=== PATIENT | male | born 1985 | race American Indian/Alaskan Native ===

== ENCOUNTER 2019-07-07 15:53 | Inpatient (IN) | payer SELFPAY ==
[2019-07-07 17:01] LABS: Mean Corpuscular HGB Conc 31 % (32-34); Mean Corpuscular Volume 90 fl (84-94); Platelet Count 295 K/mm3 (140-440); Red Blood Count 6.62 M/mm3 (3.65-5.03); Red Cell Distribution Width 15.4 % (13.2-15.2)
[2019-07-07 17:03] LABS: Hematocrit 59.3 % (35.5-45.6); Hemoglobin 18.2 gm/dl (11.8-15.2)
[2019-07-07 17:06] LABS: Albumin 5.4 g/dL (3.9-5); Calcium 10.4 mg/dL (8.4-10.2)
[2019-07-07] MEDS ORDERED: INSULIN REGULAR, HUMAN 100 UNITS/1 ML IV ONE (17:06)
[2019-07-07] MEDS ORDERED: SODIUM CHLORIDE 0.9% 1000 ML 1,000 ML IV ONE ×2 (17:06)
[2019-07-07] MEDS ORDERED: DEXTROSE 50% IN WATER (25GM) 50 ML SYRINGE IV PRN (17:09)
--- NOTE | 2019-07-07 17:16 | Emergency Department Report ---
- General Chief complaint: Hyperglycemia Stated complaint: MADDI/FATIGUE/FREQUENT URINATION PUI?: No Time Seen by Provider: 07/07/19 17:05 Source: patient Mode of arrival: Wheelchair Limitations: No Limitations - History of Present Illness Initial comments: 34 y.o simran presents to ER with increased thirst, increased urination, fatigue, generalized weakness, for the past week, worse today. Patient with no significant medical problems, but noticed some weight gain due to poor diet since quarantine began. no fever, chills or night sweats. Strong family h/o diabetes, htn, hld. He is morbidly obese. Has not taken any meds for symptoms. symptoms are worse at nights and he has to wake up several times to urinate. No chest pain or sob, no recent travel or sick contacts. MD Complaint: generalized weakness -: Gradual Location: generalized Severity: moderate Severity scale (0 -10): 4 Quality: dull Consistency: constant Improves with: none Worsens with: none Context: other (increased thirst) Associated Symptoms: dysuria, nausea/vomiting - Related Data Allergies Allergy/AdvReac Type Severity Reaction Status Date / Time Penicillins Allergy Unknown Verified 07/07/19 16:06 ED Review of Systems ROS: Stated complaint: MADDI/FATIGUE/FREQUENT URINATION Other details as noted in HPI Comment: All other systems reviewed and negative Gastrointestinal: nausea. denies: abdominal pain Genitourinary: urgency, dysuria, frequency Musculoskeletal: denies: back pain Skin: denies: rash Neurological: weakness ED Past Medical Hx - Past Medical History Previous Medical History?: No - Surgical History Past Surgical History?: No - Social History Smoking Status: Never Smoker Substance Use Type: None ED Physical Exam - General Limitations: No Limitations General appearance: lethargic - Head Head exam: Present: atraumatic - Eye Eye exam: Present: normal appearance, PERRL, EOMI - ENT ENT exam: Present: normal exam - Neck Neck exam: Present: normal inspection - Respiratory Respiratory exam: Present: normal lung sounds bilaterally - Cardiovascular Cardiovascular Exam: Present: regular rate, normal rhythm - GI/Abdominal GI/Abdominal exam: Present: soft, normal bowel sounds - Extremities Exam Extremities exam: Present: normal inspection - Back Exam Back exam: Present: normal inspection - Neurological Exam Neurological exam: Present: alert, oriented X3 - Psychiatric Psychiatric exam: Present: normal affect, normal mood - Skin Skin exam: Present: warm, dry, intact, normal color. Absent: rash - Assessment Assessment Interval: Baseline - Level of Consciousness 1a. Level of Consciousness: alert/keenly responsive - LOC Questions 1b. LOC Questions: answers both correctly - LOC Command 1c. LOC Commands: performs tasks correctly - Best Gaze 2. Best Gaze: normal - Visual 3. Visual: no visual loss - Facial Palsy 4. Facial Palsy: normal symmetrical movement - Motor Arm 5a. Motor Arm Left: no drift 5b. Motor Arm Right: no drift - Motor Leg 6a. Motor Leg Left: no drift 6b. Motor Leg Right: no drift - Limb Ataxia 7. Limb Ataxia: absent - Sensory 8. Sensory: normal - Best Language 9. Best Language: no aphasia - Dysarthria 10. Dysarthria: normal - Extinction and Inattention 11. Extinction/Inattention: no abnormality - Scoring Total Score: 0 Stroke Severity: No Stroke Symptoms ED Course Vital Signs 07/07/19 07/07/19 07/07/19 16:03 16:06 17:30 Temperature 97.5 F L 97.5 F L Pulse Rate 128 H 128 H 119 H Respiratory 20 22 27 H Rate Blood Pressure 171/106 171/106 162/102 O2 Sat by Pulse 98 98 96 Oximetry 07/07/19 07/07/19 07/07/19 17:36 18:00 18:46 Temperature Pulse Rate 121 H 103 H 103 H Respiratory 27 H 23 Rate Blood Pressure 162/102 162/102 162/102 O2 Sat by Pulse 98 100 Oximetry 07/07/19 18:48 Temperature Pulse Rate Respiratory 24 Rate Blood Pressure O2 Sat by Pulse 100 Oximetry - Reevaluation(s) Reevaluation #1: 07/07/19 17:17 patient started on insulin d/t fsbs greater than 500 and ph 7.0 ED Medical Decision Making - Lab Data Result diagrams: 07/07/19 16:30 07/07/19 17:24 - Radiology Data Radiology results: report reviewed interpreted by me: yes - Medical Decision Making 34 y.o with new onset diabetes glucose 990 bicarb 6 in dka started on insulin drip, ns x 2 l. oxygen admit to hospitalist service new onset htn with urgency- metoprolol 5mg iv given tachycardia- secondary to dka, ivf, metoprolol, ekg lactic acidosis- secondary to dka, ivf, insulin drip dehydration: ivf, ns 2 liter bolus padmini- secondary to dehydration,dm, ivf ns 2 liters, bolus then maintenance fluids. - Differential Diagnosis dka,ami,drug abuse,dehydration,rhabdomyolisis, Critical Care Time: Yes Critical care time in (mins) excluding proc time.: 30 Critical care attestation.: If time is entered above; I have spent that time in minutes in the direct care of this critically ill patient, excluding procedure time. Critical Care Time: 30 mins for management of dka, starting insuling drip, oxygen, ivf, managing hypertensive emergency. ED Disposition Clinical Impression: DKA, type 2 Qualifiers: Diabetes mellitus complication detail: without coma Qualified Code(s): E11.10 - Type 2 diabetes mellitus with ketoacidosis without coma Disposition: OP ADMIT IP TO THIS HOSP Is pt being admited?: Yes Does the pt Need Aspirin: No Condition: Critical
[2019-07-07] MEDS ORDERED: METOPROLOL TARTRATE 5 MG/5 ML INJ IV ONE (17:21)
--- NOTE | 2019-07-07 17:36 | XRay Report ---
CHEST 1 VIEW INDICATION / CLINICAL INFORMATION: MAIN: cough,weakness; pt c/o feeling weak for 3-4 days. + increased urination and thirst. + n/v. pt d enies diarrhea. pt also c/o upper back pain. rr even and nonlabored. BG > 500. COMPARISON: None available. FINDINGS: SUPPORT DEVICES: None. HEART / MEDIASTINUM: No significant abnormality. LUNGS / PLEURA: No significant pulmonary or pleural abnormality. No pneumothorax. ADDITIONAL FINDINGS: No significant additional findings. IMPRESSION: 1. No acute findings. Signer Name: Jean Marie Bacon MD Signed: 07/07/2019 5:32 PM Workstation Name: [id number]
[2019-07-07 17:38] LABS: Bacteria,Urine 1+ /HPF (Negative); Bilirubin,Urine NEG (Negative); Blood,Urine MOD (Negative); Color,Urine Straw (Yellow); Hyaline Casts,Urine 2 /LPF; Mucus,Urine FEW /HPF; Urobilinogen,Urine < 2.0 mg/dL (<2.0)
[2019-07-07 17:43] LABS: Amphetamine Screen,Urine PRESUMPTIVE NEGATIVE; Benzodiazepines Screen,Urine PRESUMPTIVE NEGATIVE; Cannabinoid Screen,Urine PRESUMPTIVE NEGATIVE; Cocaine Screen,Urine PRESUMPTIVE NEGATIVE; Methadone Screen,Urine PRESUMPTIVE NEGATIVE; Opiate Screen,Urine PRESUMPTIVE NEGATIVE
[2019-07-07 17:53] LABS: Calcium 10.3 mg/dL (8.4-10.2)
[2019-07-07] MEDS ORDERED: SODIUM BICARB 8.4% 50 MEQ/50 ML SYRINGE IV ONE ×2 (18:04→21:04)
[2019-07-07] MEDS ORDERED: SODIUM CHLORIDE 0.9% 1000 ML 3,000 ML IV ONE (18:06)
--- NOTE | 2019-07-07 18:07 | History and Physical Report ---
History of Present Illness Chief complaint: I have been feeling weak and tired History of present illness: 34 YO Male with Obesity presents to ED for evaluation. Patient states that he has experienced generalized weakness, fatigue, increased urination, increased thirst over the past week with worsening symptoms over the past 3 days. Patient acknowledges nausea, and several episodes of vomiting. Patient also reports decreased oral intake. Patient transported to [facility] via private vehicle for further care and evaluation. Patient seen and evaluated in the emergency department. Lab and imaging studies reviewed. Patient found to have new onset diabetes mellitus with serum glucose over 900 as well as acidosis which is consistent with diabetic ketoacidosis, acute kidney injury, metabolic acidosis, and systemic inflammatory response syndrome. Patient initiated on DKA protocol and admitted to ICU due to increased risk of decompensation. Patient treated with insulin drip, IV fluid therapy and supportive care with mild improvement in symptoms. Patient denies fever, chills, chest pain, palpitation, productive cough, skin rash, recent ill contacts, or known exposure to COVID-19. No prior admission for review. No medication listed at time of admission for reconciliation. Critical care team consulted in ED. Past History Past Medical History: other (See HPI) Past Surgical History: No surgical history, Other (Reviewed) Social history: single. denies: smoking, alcohol abuse, prescription drug abuse Family history: diabetes, hypertension Medications and Allergies Allergies Allergy/AdvReac Type Severity Reaction Status Date / Time Penicillins Allergy Unknown Verified 07/07/19 16:06 Active Meds: Active Medications Dextrose (D50w (25gm) Syringe) 0 ml IV Q30MIN PRN; Protocol PRN Reason: Hypoglycemia Insulin Human Regular 100 (units/ Sodium Chloride) 100 mls @ 1 mls/hr IV TITR JASS; Protocol Sodium Chloride (Nacl 0.9% 1000 Ml) 1,000 mls @ 150 mls/hr IV DIRECT JASS Sodium Bicarbonate (Sodium Bicarbonate 50meq Syringe) 50 meq IV ONCE ONE Stop: 07/07/19 18:05 Sodium Bicarbonate (Sodium Bicarbonate 50meq Syringe) 50 meq IV ONCE ONE Stop: 07/07/19 21:05 Sodium Chloride (Sodium Chloride Flush Syringe 10 Ml) 10 ml IV BID JASS Sodium Chloride (Sodium Chloride Flush Syringe 10 Ml) 10 ml IV PRN PRN PRN Reason: LINE FLUSH Review of Systems Constitutional: fatigue, weakness, no weight loss, no weight gain, no fever, no chills, no malaise, no lethargy Ears, nose, mouth and throat: no ear pain, no ear discharge, no tinnitis, no d ecreased hearing, no nose pain, no nasal congestion Cardiovascular: no chest pain, no orthopnea, no rapid/irregular heart beat, no edema, no syncope, no lightheadedness Respiratory: no cough, no cough with sputum, no excessive sputum, no shortness of breath, no dyspnea on exertion Gastrointestinal: nausea, vomiting, no abdominal pain, no diarrhea, no constipation, no change in bowel habits, no hematemesis Genitourinary Male: no hematuria, no flank pain, no discharge, no urinary frequency, no urinary hesitancy, no nocturia Rectal: no pain, no incontinence, no bleeding Musculoskeletal: no neck stiffness, no neck pain, no shooting arm pain, no arm numbness/tingling, no low back pain, no shooting leg pain, no leg numbness/tingling Integumentary: no rash, no pruritis, no sores, no wounds, no jaundice, no boils, no blisters Neurological: no head injury, no transient paralysis, no paralysis, no weakness, no parathesias, no numbness, no tingling, no syncope, no tremors Psychiatric: no anxiety, no memory loss, no insomnia, no hypersomnia, no change in libido, no suicidal ideation, no disorientation Endocrine: polyphagia, excessive thirst, polydipsia, polyuria, high blood sugars, no cold intolerance, no heat intolerance, no flushing, no recent glucocorticoid use Hematologic/Lymphatic: no easy bruising, no easy bleeding, no lymphadenopathy, no lymphedema Allergic/Immunologic: no urticaria, no allergic rhinitis, no persistent infections, no anaphylaxis Exam - Constitutional Vitals: Temp Pulse Resp BP Pulse Ox 97.5 F L 121 H 22 162/102 98 07/07/19 16:06 07/07/19 17:36 07/07/19 16:06 07/07/19 17:36 07/07/19 16:06 General appearance: Present: mild distress - EENT Eyes: Present: PERRL ENT: hearing intact, clear oral mucosa, other (Dry oral mucosa) - Neck Neck: Present: supple, normal ROM - Respiratory Respiratory effort: normal Respiratory: bilateral: CTA - Cardiovascular Heart Sounds: Present: S1 & S2. Absent: rub, click - Extremities Extremities: pulses symmetrical, No edema Peripheral Pulses: within normal limits - Abdominal General gastrointestinal: Present: soft, non-tender, non-distended, normal bowel sounds Male genitourinary: Present: normal - Integumentary Integumentary: Present: dry, clammy, decreased turgor - Musculoskeletal Musculoskeletal: generalized weakness - Psychiatric Psychiatric: appropriate mood/affect, intact judgment & insight - Neurologic Neurologic: CNII-XII intact, moves all extremities Results - Labs CBC & Chem 7: 07/07/19 16:30 07/07/19 17:24 Labs: Abnormal lab results 07/07/19 07/07/19 07/07/19 Range/Units 16:17 16:30 16:30 WBC 14.8 H (4.5-11.0) K/mm3 RBC 6.62 H (3.65-5.03) M/mm3 Hgb 18.2 H (11.8-15.2) gm/dl Hct 59.3 H (35.5-45.6) % MCHC 31 L (32-34) % RDW 15.4 H (13.2-15.2) % VBG pH (7.320-7.420) Sodium 132 L (137-145) mmol/L Potassium 5.4 H (3.6-5.0) mmol/L Chloride 86.4 L (98-107) mmol/L Carbon Dioxide 6 L* (22-30) mmol/L BUN 43 H (9-20) mg/dL Creatinine 2.6 H (0.8-1.5) mg/dL Glucose 997 H* (75-100) mg/dL POC Glucose > 500 H (70-105) Lactic Acid (0.7-2.0) mmol/L Calcium 10.4 H (8.4-10.2) mg/dL Total Protein 10.2 H (6.3-8.2) g/dL Albumin 5.4 H (3.9-5) g/dL 07/07/19 07/07/19 07/07/19 Range/Units 16:30 16:30 17:24 WBC (4.5-11.0) K/mm3 RBC (3.65-5.03) M/mm3 Hgb (11.8-15.2) gm/dl Hct (35.5-45.6) % MCHC (32-34) % RDW (13.2-15.2) % VBG pH 7.057 L* (7.320-7.420) Sodium 128 L (137-145) mmol/L Potassium 5.9 H (3.6-5.0) mmol/L Chloride 82.2 L (98-107) mmol/L Carbon Dioxide 7 L* (22-30) mmol/L BUN 46 H (9-20) mg/dL Creatinine 2.8 H (0.8-1.5) mg/dL Glucose 1028 H* (75-100) mg/dL POC Glucose (70-105) Lactic Acid 5.00 H* (0.7-2.0) mmol/L Calcium 10.3 H (8.4-10.2) mg/dL Total Protein (6.3-8.2) g/dL Albumin (3.9-5) g/dL Assessment and Plan - Patient Problems (1) Diabetic ketoacidosis Current Visit: Yes Status: Acute Plan to address problem: DKA protocol: Insulin drip, IV fluid resuscitation therapy, admit to ICU, serial BMP, monitor urine output every shift, monitor serum creatinine, monitor serum potassium, monitor anion gap, critical care team consulted in ED. The high probability of a clinically significant, sudden or life threatening deterioration of the [endocrine, renal, cardiac, pulmonary] system(s) required my full and direct attention, intervention and personal management. The agg regate critical care time was [65] minutes. This time is in addition to time spent performing reported procedures but includes the following: [x] Data Review and interpretation [x] Patient assessment and monitoring of vital signs [x] Documentation [x] Medication orders and management (2) Acute kidney injury (SHAHNAZ) with acute tubular necrosis (ATN) Current Visit: Yes Status: Acute Plan to address problem: IV fluid resuscitation therapy, monitor urine output every shift, avoid nephrotoxic agents, repeat BMP to monitor serum creatinine. (3) Systemic inflammatory response syndrome (SIRS) associated with organ dysfunction Current Visit: Yes Status: Acute Plan to address problem: CBC, CMP, chest x-ray, urinalysis, IV fluid resuscitation therapy, treat DKA, no signs of active infection. (4) Metabolic acidosis Current Visit: Yes Status: Acute Plan to address problem: BMP, IV fluid resuscitation therapy, serial lactic acid, repeat BMP in a.m., IV bicarbonate therapy, IV fluid resuscitation therapy (5) Obesity Current Visit: Yes Status: Acute Qualifiers: Body mass index: BMI 40.0-44.9 Plan to address problem: Balanced diet, increase physical activity at discharge, supportive care (6) DVT prophylaxis Current Visit: Yes Status: Acute Plan to address problem: SCD to bilateral lower extremities while in bed, patient is ambulatory
[2019-07-07] MEDS ORDERED: SODIUM CHLORIDE 0.9% 1000 ML 1,000 ML IV SCH (18:15)
[2019-07-07] MEDS: INSULIN REGULAR, HUMAN 100 UNITS in SODIUM CHLORIDE 0.9% 99 ML IV SCH (18:44)
[2019-07-07 21:00] LABS: Calcium 8.9 mg/dL (8.4-10.2)
[2019-07-07 23:43] LABS: Calcium 9.8 mg/dL (8.4-10.2)
[2019-07-08 01:47] LABS: Calcium 10.1 mg/dL (8.4-10.2)
[2019-07-08] MEDS ORDERED: DEXTROSE 5% IN WATER 1,000 ML IV ONE (05:48)
[2019-07-08] MEDS ORDERED: D5W/0.45% NACL 1,000 ML IV SCH (06:01)
[2019-07-08] MEDS ORDERED: D5W/0.45% NACL 1,000 ML IV ONE (06:42)
[2019-07-08] MEDS: INSULIN REGULAR, HUMAN 100 UNITS in SODIUM CHLORIDE 0.9% 99 ML IV SCH (06:59)
[2019-07-08 10:37] LABS: BUN/Creatinine Ratio 21; Blood Urea Nitrogen 31 mg/dL (9-20); Calcium 10.5 mg/dL (8.4-10.2); Hemolysis Index 12
--- NOTE | 2019-07-08 11:00 | Consultation ---
History of Present Illness - Reason for Consult Consult date: 07/08/19 DKA Requesting physician: CK GARCIA - History of Present Illness 34 y/o obese male admitted with DKA. Past History Past Medical History: other (See HPI) Past Surgical History: No surgical history, Other (Reviewed) Social history: single. denies: smoking, alcohol abuse, prescription drug abuse Family history: diabetes, hypertension Medications and Allergies Allergies Allergy/AdvReac Type Severity Reaction Status Date / Time Penicillins Allergy Unknown Verified 07/07/19 16:06 Home Medications Medication Instructions Recorded Confirmed Last Taken Type No Known Home Medications [No 07/08/19 07/08/19 Unknown History Reported Home Medications] Active Meds: Active Medications Dextrose (D50w (25gm) Syringe) 0 ml IV Q30MIN PRN; Protocol PRN Reason: Hypoglycemia Insulin Human Regular 100 (units/ Sodium Chloride) 100 mls @ 1 mls/hr IV TITR JASS; Protocol Last Titration: 07/08/19 10:23 Dose: 14 units/hr, 14 mls/hr Documented by: Sodium Chloride (Nacl 0.9% 1000 Ml) 1,000 mls @ 150 mls/hr IV DIRECT JASS Dextrose/Sodium Chloride (D5/0.45ns) 1,000 mls @ 125 mls/hr IV DIRECT JASS Last Admin: 07/08/19 07:24 Dose: 125 mls/hr Documented by: Sodium Chloride (Sodium Chloride Flush Syringe 10 Ml) 10 ml IV BID JASS Last Admin: 07/08/19 10:23 Dose: 10 ml Documented by: Sodium Chloride (Sodium Chloride Flush Syringe 10 Ml) 10 ml IV PRN PRN PRN Reason: LINE FLUSH Review of Systems All systems: negative Exam - Constitutional Vitals: Temp Pulse Resp BP Pulse Ox 98.7 F 100 H 16 151/92 99 07/08/19 07:09 07/08/19 10:16 07/08/19 10:16 07/08/19 10:16 07/08/19 10:16 General appearance: Present: well-nourished, obese - EENT Eyes: Present: PERRL, EOM intact ENT: hearing intact - Neck Neck: Present: supple, normal ROM, other (large in circumference) - Respiratory Respiratory effort: normal - Cardiovascular Rhythm: regular Heart Sounds: Present: S1 & S2 Results - Labs CBC & Chem 7: 07/07/19 16:30 07/08/19 09:48 Labs: Abnormal lab results 07/07/19 07/07/19 07/07/19 Range/Units 16:17 16:30 16:30 WBC 14.8 H (4.5-11.0) K/mm3 RBC 6.62 H (3.65-5.03) M/mm3 Hgb 18.2 H (11.8-15.2) gm/dl Hct 59.3 H (35.5-45.6) % MCHC 31 L (32-34) % RDW 15.4 H (13.2-15.2) % VBG pH (7.320-7.420) Sodium 132 L (137-145) mmol/L Potassium 5.4 H (3.6-5.0) mmol/L Chloride 86.4 L (98-107) mmol/L Carbon Dioxide 6 L* (22-30) mmol/L BUN 43 H (9-20) mg/dL Creatinine 2.6 H (0.8-1.5) mg/dL Glucose 997 H* (75-100) mg/dL POC Glucose > 500 H (70-105) Lactic Acid (0.7-2.0) mmol/L Calcium 10.4 H (8.4-10.2) mg/dL Total Protein 10.2 H (6.3-8.2) g/dL Albumin 5.4 H (3.9-5) g/dL 07/07/19 07/07/19 07/07/19 Range/Units 16:30 16:30 17:24 WBC (4.5-11.0) K/mm3 RBC (3.65-5.03) M/mm3 Hgb (11.8-15.2) gm/dl Hct (35.5-45.6) % MCHC (32-34) % RDW (13.2-15.2) % VBG pH 7.057 L* (7.320-7.420) Sodium 128 L (137-145) mmol/L Potassium 5.9 H (3.6-5.0) mmol/L Chloride 82.2 L (98-107) mmol/L Carbon Dioxide 7 L* (22-30) mmol/L BUN 46 H (9-20) mg/dL Creatinine 2.8 H (0.8-1.5) mg/dL Glucose 1028 H* (75-100) mg/dL POC Glucose (70-105) Lactic Acid 5.00 H* (0.7-2.0) mmol/L Calcium 10.3 H (8.4-10.2) mg/dL Total Protein (6.3-8.2) g/dL Albumin (3.9-5) g/dL 07/07/19 07/07/19 07/07/19 Range/Units 20:06 20:32 22:21 WBC (4.5-11.0) K/mm3 RBC (3.65-5.03) M/mm3 Hgb (11.8-15.2) gm/dl Hct (35.5-45.6) % MCHC (32-34) % RDW (13.2-15.2) % VBG pH (7.320-7.420) Sodium (137-145) mmol/L Potassium 5.3 H (3.6-5.0) mmol/L Chloride (98-107) mmol/L Carbon Dioxide 9 L* (22-30) mmol/L BUN 42 H (9-20) mg/dL Creatinine 2.2 H (0.8-1.5) mg/dL Glucose 631 H* (75-100) mg/dL POC Glucose > 500 H 426 H (70-105) Lactic Acid (0.7-2.0) mmol/L Calcium (8.4-10.2) mg/dL Total Protein (6.3-8.2) g/dL Albumin (3.9-5) g/dL 07/07/19 07/07/19 07/08/19 Range/Units 23:06 23:32 00:34 WBC (4.5-11.0) K/mm3 RBC (3.65-5.03) M/mm3 Hgb (11.8-15.2) gm/dl Hct (35.5-45.6) % MCHC (32-34) % RDW (13.2-15.2) % VBG pH (7.320-7.420) Sodium 146 H D (137-145) mmol/L Potassium 5.4 H (3.6-5.0) mmol/L Chloride (98-107) mmol/L Carbon Dioxide 14 L (22-30) mmol/L BUN 39 H (9-20) mg/dL Creatinine 2.0 H (0.8-1.5) mg/dL Glucose 477 H (75-100) mg/dL POC Glucose 412 H 356 H (70-105) Lactic Acid (0.7-2.0) mmol/L Calcium (8.4-10.2) mg/dL Total Protein (6.3-8.2) g/dL Albumin (3.9-5) g/dL 07/08/19 07/08/19 07/08/19 Range/Units 01:07 01:38 03:00 WBC (4.5-11.0) K/mm3 RBC (3.65-5.03) M/mm3 Hgb (11.8-15.2) gm/dl Hct (35.5-45.6) % MCHC (32-34) % RDW (13.2-15.2) % VBG pH (7.320-7.420) Sodium 150 H (137-145) mmol/L Potassium (3.6-5.0) mmol/L Chloride 110.0 H (98-107) mmol/L Carbon Dioxide 15 L (22-30) mmol/L BUN 37 H (9-20) mg/dL Creatinine 1.8 H (0.8-1.5) mg/dL Glucose 407 H (75-100) mg/dL POC Glucose 302 H 255 H (70-105) Lactic Acid (0.7-2.0) mmol/L Calcium (8.4-10.2) mg/dL Total Protein (6.3-8.2) g/dL Albumin (3.9-5) g/dL 07/08/19 07/08/19 07/08/19 Range/Units 03:59 05:06 06:00 WBC (4.5-11.0) K/mm3 RBC (3.65-5.03) M/mm3 Hgb (11.8-15.2) gm/dl Hct (35.5-45.6) % MCHC (32-34) % RDW (13.2-15.2) % VBG pH (7.320-7.420) Sodium (137-145) mmol/L Potassium (3.6-5.0) mmol/L Chloride (98-107) mmol/L Carbon Dioxide (22-30) mmol/L BUN (9-20) mg/dL Creatinine (0.8-1.5) mg/dL Glucose (75-100) mg/dL POC Glucose 295 H 250 H 249 H (70-105) Lactic Acid (0.7-2.0) mmol/L Calcium (8.4-10.2) mg/dL Total Protein (6.3-8.2) g/dL Albumin (3.9-5) g/dL 07/08/19 07/08/19 07/08/19 Range/Units 06:59 08:10 09:18 WBC (4.5-11.0) K/mm3 RBC (3.65-5.03) M/mm3 Hgb (11.8-15.2) gm/dl Hct (35.5-45.6) % MCHC (32-34) % RDW (13.2-15.2) % VBG pH (7.320-7.420) Sodium (137-145) mmol/L Potassium (3.6-5.0) mmol/L Chloride (98-107) mmol/L Carbon Dioxide (22-30) mmol/L BUN (9-20) mg/dL Creatinine (0.8-1.5) mg/dL Glucose (75-100) mg/dL POC Glucose 242 H 242 H 256 H (70-105) Lactic Acid (0.7-2.0) mmol/L Calcium (8.4-10.2) mg/dL Total Protein (6.3-8.2) g/dL Albumin (3.9-5) g/dL 07/08/19 07/08/19 Range/Units 09:48 10:33 WBC (4.5-11.0) K/mm3 RBC (3.65-5.03) M/mm3 Hgb (11.8-15.2) gm/dl Hct (35.5-45.6) % MCHC (32-34) % RDW (13.2-15.2) % VBG pH (7.320-7.420) Sodium 153 H (137-145) mmol/L Potassium (3.6-5.0) mmol/L Chloride 115.9 H (98-107) mmol/L Carbon Dioxide 16 L (22-30) mmol/L BUN 31 H (9-20) mg/dL Creatinine (0.8-1.5) mg/dL Glucose 339 H (75-100) mg/dL POC Glucose 284 H (70-105) Lactic Acid (0.7-2.0) mmol/L Calcium 10.5 H (8.4-10.2) mg/dL Total Protein (6.3-8.2) g/dL Albumin (3.9-5) g/dL Assessment and Plan 34 y/o with DKA, obesity. 1. Continue insulin drip until Anion Gap closes 2. Need to switch to D5W given increases in Na and Chloride 3. Weight loss 4. BP control per primary team 5. Diabetic education CCT 31 minutes.
[2019-07-08] MEDS ORDERED: D5W/0.45% NACL/KCL 20 MEQ 20 MEQ/1,000 ML BAG IV SCH (13:00)
--- NOTE | 2019-07-08 14:33 | Progress Note ---
Assessment and Plan /Diabetic ketoacidosis Continue DKA protocol: Insulin drip, IV fluid resuscitation therapy, serial BMP, monitor urine output every shift, monitor serum creatinine, monitor serum potassium, monitor anion gap, critical care team consulted Will stop insulin drip when anion gap closes Keep n.p.o. for now /Acute kidney injury (SHAHNAZ) with vasomotor nephropathy IV fluid resuscitation therapy, monitor urine output every shift, avoid nephroto xic agents, repeat BMP to monitor serum creatinine. / Systemic inflammatory response syndrome (SIRS) associated with organ dysfunction Likely due to DKA IV fluid resuscitation therapy, treat DKA, no signs of active infection. /New onset diabetes mellitus We will order for A1c, will provide diabetic education /Morbid obesity Body mass index: BMI 40.0-44.9 Balanced diet, increase physical activity at discharge, supportive care / DVT prophylaxis SCD to bilateral lower extremities while in bed, patient is ambulatory Subjective Date of service: 07/08/19 Interval history: Patient seen and examined. Medical records and medication list reviewed. No acute event overnight noted by the RN. Patient denies any chest pain or difficulty breathing. Patient states that he does not have any history of diabetes prior to this admission, but diabetes runs in his family Discussed plan of care at bedside with patient. Objective - Exam Narrative Exam: GENERAL: well-developed and well-nourished obese -[place] male lying on bed appeared to be in no discomfort. HEENT: Normocephalic. Atraumatic. No conjunctival congestion or icterus. Patient has moist mucous membranes. NECK: Supple. Trachea midline. CHEST/LUNGS: Clear to auscultated bilaterally, breathing nonlabored. No wheezes crackles or rhonchi. HEART/CARDIOVASCULAR: Regular in rate and rhythm. S1 and S2 positive. ABDOMEN: Abdomen is soft, nontender. Patient has normal bowel sounds. SKIN: There is no rash. Warm and dry. NEURO: No focal motor deficit. Follows command. MUSCULOSKELETAL: No joint effusion or tenderness. EXTRIMITY: No edema, no cyanosis or clubbing. PSYCH: Cooperative. - Constitutional Vitals: Vital Signs - 12hr 07/08/19 07/08/19 07/08/19 02:46 03:00 03:15 Temperature Pulse Rate Respiratory Rate Blood Pressure 142/103 142/103 155/97 Blood Pressure [Right] O2 Sat by Pulse 99 99 99 Oximetry 07/08/19 07/08/19 07/08/19 03:30 03:46 06:30 Temperature Pulse Rate Respiratory Rate Blood Pressure 155/97 155/97 150/108 Blood Pressure [Right] O2 Sat by Pulse 98 98 99 Oximetry 07/08/19 07/08/19 07/08/19 07:09 07:46 08:30 Temperature 98.7 F Pulse Rate 111 H 102 H 97 H Respiratory 13 20 20 Rate Blood Pressure 160/108 165/107 Blood Pressure 143/107 [Right] O2 Sat by Pulse 98 98 98 Oximetry 07/08/19 07/08/19 07/08/19 09:15 10:16 10:30 Temperature Pulse Rate 96 H 100 H 111 H Respiratory 18 16 13 Rate Blood Pressure 149/103 151/92 151/92 Blood Pressure [Right] O2 Sat by Pulse 99 99 98 Oximetry 07/08/19 07/08/19 07/08/19 10:40 10:50 11:00 Temperature Pulse Rate 110 H 113 H 95 H Respiratory 13 13 21 Rate Blood Pressure 151/92 151/92 151/92 Blood Pressure [Right] O2 Sat by Pulse 98 99 99 Oximetry 07/08/19 07/08/19 07/08/19 12:00 12:07 12:27 Temperature Pulse Rate Respiratory 16 12 13 Rate Blood Pressure 161/112 Blood Pressure [Right] O2 Sat by Pulse 100 99 99 Oximetry 07/08/19 07/08/19 07/08/19 12:30 12:40 12:50 Temperature Pulse Rate Respiratory 16 16 16 Rate Blood Pressure 161/112 Blood Pressure [Right] O2 Sat by Pulse 99 97 98 Oximetry 07/08/19 07/08/19 07/08/19 13:00 13:10 13:20 Temperature Pulse Rate Respiratory 16 13 15 Rate Blood Pressure 158/110 158/110 158/110 Blood Pressure [Right] O2 Sat by Pulse 98 99 99 Oximetry 07/08/19 07/08/19 07/08/19 13:30 13:40 13:50 Temperature Pulse Rate 106 H Respiratory 16 21 17 Rate Blood Pressure 158/110 158/110 158/110 Blood Pressure [Right] O2 Sat by Pulse 99 99 99 Oximetry 07/08/19 14:00 Temperature Pulse Rate Respiratory 18 Rate Blood Pressure 151/110 Blood Pressure [Right] O2 Sat by Pulse 99 Oximetry - Labs CBC & Chem 7: 07/07/19 16:30 07/08/19 16:54 Labs: Abnormal lab results 07/07/19 07/07/19 07/07/19 Range/Units 16:17 16:30 16:30 WBC 14.8 H (4.5-11.0) K/mm3 RBC 6.62 H (3.65-5.03) M/mm3 Hgb 18.2 H (11.8-15.2) gm/dl Hct 59.3 H (35.5-45.6) % MCHC 31 L (32-34) % RDW 15.4 H (13.2-15.2) % VBG pH (7.320-7.420) Sodium 132 L (137-145) mmol/L Potassium 5.4 H (3.6-5.0) mmol/L Chloride 86.4 L (98-107) mmol/L Carbon Dioxide 6 L* (22-30) mmol/L BUN 43 H (9-20) mg/dL Creatinine 2.6 H (0.8-1.5) mg/dL Glucose 997 H* (75-100) mg/dL POC Glucose > 500 H (70-105) Lactic Acid (0.7-2.0) mmol/L Calcium 10.4 H (8.4-10.2) mg/dL Total Protein 10.2 H (6.3-8.2) g/dL Albumin 5.4 H (3.9-5) g/dL 07/07/19 07/07/19 07/07/19 Range/Units 16:30 16:30 17:24 WBC (4.5-11.0) K/mm3 RBC (3.65-5.03) M/mm3 Hgb (11.8-15.2) gm/dl Hct (35.5-45.6) % MCHC (32-34) % RDW (13.2-15.2) % VBG pH 7.057 L* (7.320-7.420) Sodium 128 L (137-145) mmol/L Potassium 5.9 H (3.6-5.0) mmol/L Chloride 82.2 L (98-107) mmol/L Carbon Dioxide 7 L* (22-30) mmol/L BUN 46 H (9-20) mg/dL Creatinine 2.8 H (0.8-1.5) mg/dL Glucose 1028 H* (75-100) mg/dL POC Glucose (70-105) Lactic Acid 5.00 H* (0.7-2.0) mmol/L Calcium 10.3 H (8.4-10.2) mg/dL Total Protein (6.3-8.2) g/dL Albumin (3.9-5) g/dL 07/07/19 07/07/19 07/07/19 Range/Units 20:06 20:32 22:21 WBC (4.5-11.0) K/mm3 RBC (3.65-5.03) M/mm3 Hgb (11.8-15.2) gm/dl Hct (35.5-45.6) % MCHC (32-34) % RDW (13.2-15.2) % VBG pH (7.320-7.420) Sodium (137-145) mmol/L Potassium 5.3 H (3.6-5.0) mmol/L Chloride (98-107) mmol/L Carbon Dioxide 9 L* (22-30) mmol/L BUN 42 H (9-20) mg/dL Creatinine 2.2 H (0.8-1.5) mg/dL Glucose 631 H* (75-100) mg/dL POC Glucose > 500 H 426 H (70-105) Lactic Acid (0.7-2.0) mmol/L Calcium (8.4-10.2) mg/dL Total Protein (6.3-8.2) g/dL Albumin (3.9-5) g/dL 07/07/19 07/07/19 07/08/19 Range/Units 23:06 23:32 00:34 WBC (4.5-11.0) K/mm3 RBC (3.65-5.03) M/mm3 Hgb (11.8-15.2) gm/dl Hct (35.5-45.6) % MCHC (32-34) % RDW (13.2-15.2) % VBG pH (7.320-7.420) Sodium 146 H D (137-145) mmol/L Potassium 5.4 H (3.6-5.0) mmol/L Chloride (98-107) mmol/L Carbon Dioxide 14 L (22-30) mmol/L BUN 39 H (9-20) mg/dL Creatinine 2.0 H (0.8-1.5) mg/dL Glucose 477 H (75-100) mg/dL POC Glucose 412 H 356 H (70-105) Lactic Acid (0.7-2.0) mmol/L Calcium (8.4-10.2) mg/dL Total Protein (6.3-8.2) g/dL Albumin (3.9-5) g/dL 07/08/19 07/08/19 07/08/19 Range/Units 01:07 01:38 03:00 WBC (4.5-11.0) K/mm3 RBC (3.65-5.03) M/mm3 Hgb (11.8-15.2) gm/dl Hct (35.5-45.6) % MCHC (32-34) % RDW (13.2-15.2) % VBG pH (7.320-7.420) Sodium 150 H (137-145) mmol/L Potassium (3.6-5.0) mmol/L Chloride 110.0 H (98-107) mmol/L Carbon Dioxide 15 L (22-30) mmol/L BUN 37 H (9-20) mg/dL Creatinine 1.8 H (0.8-1.5) mg/dL Glucose 407 H (75-100) mg/dL POC Glucose 302 H 255 H (70-105) Lactic Acid (0.7-2.0) mmol/L Calcium (8.4-10.2) mg/dL Total Protein (6.3-8.2) g/dL Albumin (3.9-5) g/dL 07/08/19 07/08/19 07/08/19 Range/Units 03:59 05:06 06:00 WBC (4.5-11.0) K/mm3 RBC (3.65-5.03) M/mm3 Hgb (11.8-15.2) gm/dl Hct (35.5-45.6) % MCHC (32-34) % RDW (13.2-15.2) % VBG pH (7.320-7.420) Sodium (137-145) mmol/L Potassium (3.6-5.0) mmol/L Chloride (98-107) mmol/L Carbon Dioxide (22-30) mmol/L BUN (9-20) mg/dL Creatinine (0.8-1.5) mg/dL Glucose (75-100) mg/dL POC Glucose 295 H 250 H 249 H (70-105) Lactic Acid (0.7-2.0) mmol/L Calcium (8.4-10.2) mg/dL Total Protein (6.3-8.2) g/dL Albumin (3.9-5) g/dL 07/08/19 07/08/19 07/08/19 Range/Units 06:59 08:10 09:18 WBC (4.5-11.0) K/mm3 RBC (3.65-5.03) M/mm3 Hgb (11.8-15.2) gm/dl Hct (35.5-45.6) % MCHC (32-34) % RDW (13.2-15.2) % VBG pH (7.320-7.420) Sodium (137-145) mmol/L Potassium (3.6-5.0) mmol/L Chloride (98-107) mmol/L Carbon Dioxide (22-30) mmol/L BUN (9-20) mg/dL Creatinine (0.8-1.5) mg/dL Glucose (75-100) mg/dL POC Glucose 242 H 242 H 256 H (70-105) Lactic Acid (0.7-2.0) mmol/L Calcium (8.4-10.2) mg/dL Total Protein (6.3-8.2) g/dL Albumin (3.9-5) g/dL 07/08/19 07/08/19 Range/Units 09:48 10:33 WBC (4.5-11.0) K/mm3 RBC (3.65-5.03) M/mm3 Hgb (11.8-15.2) gm/dl Hct (35.5-45.6) % MCHC (32-34) % RDW (13.2-15.2) % VBG pH (7.320-7.420) Sodium 153 H (137-145) mmol/L Potassium (3.6-5.0) mmol/L Chloride 115.9 H (98-107) mmol/L Carbon Dioxide 16 L (22-30) mmol/L BUN 31 H (9-20) mg/dL Creatinine (0.8-1.5) mg/dL Glucose 339 H (75-100) mg/dL POC Glucose 284 H (70-105) Lactic Acid (0.7-2.0) mmol/L Calcium 10.5 H (8.4-10.2) mg/dL Total Protein (6.3-8.2) g/dL Albumin (3.9-5) g/dL
[2019-07-08 17:18] LABS: BUN/Creatinine Ratio 20; Blood Urea Nitrogen 28 mg/dL (9-20); Calcium 10.8 mg/dL (8.4-10.2); Hemolysis Index 48
[2019-07-08] MEDS: INSULIN NPH, HUMAN 100 UNIT/1 ML SUB-Q SCH (19:08)
[2019-07-08] MEDS: INSULIN REGULAR, HUMAN 100 UNITS/1 ML SUB-Q SCH (22:08)
[2019-07-09] MEDS ORDERED: INSULIN NPH, HUMAN 100 UNIT/1 ML SUB-Q SCH (08:00)
[2019-07-09] MEDS: INSULIN REGULAR, HUMAN 100 UNITS/1 ML SUB-Q SCH (08:20)
[2019-07-09] MEDS: INSULIN NPH, HUMAN 100 UNIT/1 ML SUB-Q SCH (08:20)
[2019-07-09 10:04] LABS: BUN/Creatinine Ratio 17; Blood Urea Nitrogen 27 mg/dL (9-20); Calcium 10.4 mg/dL (8.4-10.2); Hemolysis Index 13
[2019-07-09] MEDS: INSULIN REGULAR, HUMAN 100 UNITS in SODIUM CHLORIDE 0.9% 99 ML IV SCH (11:16)
--- NOTE | 2019-07-09 12:35 | Progress Note ---
Assessment and Plan /Diabetic ketoacidosis off insulin drip o/n, BG 400 this am restarted DKA protocol: Insulin drip, IV fluid resuscitation therapy, serial BM P, monitor urine output every shift, monitor serum creatinine, monitor serum potassium, monitor anion gap, critical care team following Will stop insulin drip when anion gap closes Keep n.p.o. for now /Acute kidney injury (SHAHNAZ) with vasomotor nephropathy IV fluid resuscitation therapy, avoid nephrotoxic agents, repeat BMP to monitor serum creatinine. /hypernatremia due to hyperglycemia - placed on 1/2 NS, should improve when BG stabilizes /hyperkalemia, resolved monitor BMP / Systemic inflammatory response syndrome (SIRS) associated with organ dysfunction Likely due to DKA IV fluid resuscitation therapy, treat DKA, no signs of active infection. /New onset diabetes mellitus follow A1c, will provide diabetic education when clinically stable /Morbid obesity Body mass index: BMI 40.0-44.9 recommended Balanced diet, increase physical activity at discharge, cont supportive care / DVT prophylaxis SCD to bilateral lower extremities while in bed, patient is ambulatory Subjective Date of service: 07/09/19 Interval history: Patient seen and examined. Medical records and medication list reviewed. No acute event overnight noted by the RN. Patient denies any chest pain or difficulty breathing. he was off insulin drip o/n. this am BG is 400 and increased anion gap Restarted heparin drip Objective - Exam Narrative Exam: GENERAL: well-developed and well-nourished obese -[place]er male lying on bed appeared to be in no discomfort. HEENT: Normocephalic. Atraumatic. No conjunctival congestion or icterus. Patient has moist mucous membranes. NECK: Supple. Trachea midline. CHEST/LUNGS: Clear to auscultated bilaterally, breathing nonlabored. No wheezes crackles or rhonchi. HEART/CARDIOVASCULAR: Regular in rate and rhythm. S1 and S2 positive. ABDOMEN: Abdomen is soft, nontender. Patient has normal bowel sounds. SKIN: There is no rash. Warm and dry. NEURO: No focal motor deficit. Follows command. MUSCULOSKELETAL: No joint effusion or tenderness. EXTRIMITY: No edema, no cyanosis or clubbing. PSYCH: Cooperative. - Constitutional Vitals: Vital Signs - 12hr 07/09/19 07/09/19 07/09/19 01:00 02:00 03:00 Temperature Pulse Rate 97 H 89 95 H Respiratory 20 14 16 Rate Blood Pressure 108/57 136/92 131/88 O2 Sat by Pulse 98 100 99 Oximetry 07/09/19 07/09/19 07/09/19 04:00 05:00 06:00 Temperature 98.9 F Pulse Rate 100 H 87 95 H Respiratory 14 13 20 Rate Blood Pressure 126/84 134/85 128/79 O2 Sat by Pulse 99 100 100 Oximetry 07/09/19 07/09/19 07/09/19 07:00 08:00 11:22 Temperature 98.6 F Pulse Rate 92 H 82 Respiratory 15 19 Rate Blood Pressure 128/79 120/70 120/70 O2 Sat by Pulse 99 100 100 Oximetry 07/09/19 07/09/19 11:30 12:00 Temperature 98.7 F 98.7 F Pulse Rate 104 H Respiratory 16 Rate Blood Pressure 149/95 O2 Sat by Pulse 99 Oximetry - Labs CBC & Chem 7: 07/07/19 16:30 07/09/19 19:42 Labs: Abnormal lab results 07/08/19 07/08/19 07/08/19 Range/Units 11:57 13:25 14:13 Sodium (137-145) mmol/L Potassium (3.6-5.0) mmol/L Chloride (98-107) mmol/L Carbon Dioxide (22-30) mmol/L BUN (9-20) mg/dL Creatinine (0.8-1.5) mg/dL Glucose (75-100) mg/dL POC Glucose 323 H 209 H 149 H (70-105) Calcium (8.4-10.2) mg/dL 07/08/19 07/08/19 07/08/19 Range/Units 15:03 16:54 18:07 Sodium 152 H (137-145) mmol/L Potassium 5.3 H (3.6-5.0) mmol/L Chloride 115.8 H (98-107) mmol/L Carbon Dioxide 17 L (22-30) mmol/L BUN 28 H (9-20) mg/dL Creatinine (0.8-1.5) mg/dL Glucose 162 H (75-100) mg/dL POC Glucose 109 H 154 H (70-105) Calcium 10.8 H (8.4-10.2) mg/dL 07/08/19 07/08/1920 Range/Units 20:09 22:09 08:05 Sodium 150 H (137-145) mmol/L Potassium (3.6-5.0) mmol/L Chloride 109.3 H (98-107) mmol/L Carbon Dioxide 15 L (22-30) mmol/L BUN 27 H (9-20) mg/dL Creatinine 1.6 H (0.8-1.5) mg/dL Glucose 404 H (75-100) mg/dL POC Glucose 247 H 309 H (70-105) Calcium 10.4 H (8.4-10.2) mg/dL 07/09/19 07/09/19 07/09/19 Range/Units 08:25 11:18 12:02 Sodium (137-145) mmol/L Potassium (3.6-5.0) mmol/L Chloride (98-107) mmol/L Carbon Dioxide (22-30) mmol/L BUN (9-20) mg/dL Creatinine (0.8-1.5) mg/dL Glucose (75-100) mg/dL POC Glucose 355 H 402 H 416 H (70-105) Calcium (8.4-10.2) mg/dL
--- NOTE | 2019-07-09 12:45 | Progress Note ---
Assessment and Plan 34 y/o with DKA, obesity. 1. Continue insulin drip until Anion Gap closes 2. Continue D5W or change to quarter normal saline. 3. Weight loss 4. BP control per primary team 5. Diabetic education CCT 31 minutes. Subjective Date of service: 07/09/19 Interval history: Anion Gap remains elevated at 22 and BS this am was 400. Na and Chloride better today. Objective - Constitutional Vitals: Vital Signs - 12hr 07/09/19 07/09/19 07/09/19 01:00 02:00 03:00 Temperature Pulse Rate 97 H 89 95 H Respiratory 20 14 16 Rate Blood Pressure 108/57 136/92 131/88 O2 Sat by Pulse 98 100 99 Oximetry 07/09/19 07/09/19 07/09/19 04:00 05:00 06:00 Temperature 98.9 F Pulse Rate 100 H 87 95 H Respiratory 14 13 20 Rate Blood Pressure 126/84 134/85 128/79 O2 Sat by Pulse 99 100 100 Oximetry 07/09/19 07/09/19 07/09/19 07:00 08:00 11:22 Temperature 98.6 F Pulse Rate 92 H 82 Respiratory 15 19 Rate Blood Pressure 128/79 120/70 120/70 O2 Sat by Pulse 99 100 100 Oximetry 07/09/19 07/09/19 11:30 12:00 Temperature 98.7 F 98.7 F Pulse Rate 104 H Respiratory 16 Rate Blood Pressure 149/95 O2 Sat by Pulse 99 Oximetry - Labs CBC & Chem 7: 07/07/19 16:30 07/09/19 08:05 Labs: Abnormal lab results 07/08/19 07/08/19 07/08/19 Range/Units 11:57 13:25 14:13 Sodium (137-145) mmol/L Potassium (3.6-5.0) mmol/L Chloride (98-107) mmol/L Carbon Dioxide (22-30) mmol/L BUN (9-20) mg/dL Creatinine (0.8-1.5) mg/dL Glucose (75-100) mg/dL POC Glucose 323 H 209 H 149 H (70-105) Calcium (8.4-10.2) mg/dL 07/08/19 07/08/19 07/08/19 Range/Units 15:03 16:54 18:07 Sodium 152 H (137-145) mmol/L Potassium 5.3 H (3.6-5.0) mmol/L Chloride 115.8 H (98-107) mmol/L Carbon Dioxide 17 L (22-30) mmol/L BUN 28 H (9-20) mg/dL Creatinine (0.8-1.5) mg/dL Glucose 162 H (75-100) mg/dL POC Glucose 109 H 154 H (70-105) Calcium 10.8 H (8.4-10.2) mg/dL 07/08/19 07/08/19 07/09/19 Range/Units 20:09 22:09 08:05 Sodium 150 H (137-145) mmol/L Potassium (3.6-5.0) mmol/L Chloride 109.3 H (98-107) mmol/L Carbon Dioxide 15 L (22-30) mmol/L BUN 27 H (9-20) mg/dL Creatinine 1.6 H (0.8-1.5) mg/dL Glucose 404 H (75-100) mg/dL POC Glucose 247 H 309 H (70-105) Calcium 10.4 H (8.4-10.2) mg/dL 07/09/19 07/09/19 07/09/19 Range/Units 08:25 11:18 12:02 Sodium (137-145) mmol/L Potassium (3.6-5.0) mmol/L Chloride (98-107) mmol/L Carbon Dioxide (22-30) mmol/L BUN (9-20) mg/dL Creatinine (0.8-1.5) mg/dL Glucose (75-100) mg/dL POC Glucose 355 H 402 H 416 H (70-105) Calcium (8.4-10.2) mg/dL Medications & Allergies - Medications Allergies/Adverse Reactions: Allergies Penicillins Allergy (Verified 07/07/19 16:06) Unknown Home Medications: Home Medications Medication Instructions Recorded Confirmed Last Taken Type RX: No Known Home Medications [No 07/08/19 07/08/19 Unknown History Reported Home Medications] Active Medications: Generic Name Dose Route Start Last Admin Trade Name Freq PRN Reason Stop Dose Admin Dextrose 0 ml 07/07/19 17:09 D50w (25gm) Syringe IV Q30MIN PRN Hypoglycemia Protocol Insulin Human Regular 100 100 mls @ 1 mls/hr 07/09/19 11:00 07/09/19 11:50 units/ Sodium Chloride IV 11 units/hr TITR JASS 11 mls/hr Titration Protocol 1 UNITS/HR Dextrose/Sodium Chloride 1,000 mls @ 125 mls/hr 07/09/19 11:00 D5/0.45ns IV DIRECT JASS Sodium Chloride 10 ml 07/07/19 22:00 07/09/19 11:18 Sodium Chloride Flush Syringe 10 Ml IV 10 ml BID JASS Administration Sodium Chloride 10 ml 07/07/19 18:02 Sodium Chloride Flush Syringe 10 Ml IV PRN PRN LINE FLUSH
[2019-07-09] MEDS ORDERED: SODIUM CHLORIDE 0.9% 1000 ML 1,000 ML IV SCH (13:15)
[2019-07-09] MEDS: D5W/0.45% NACL 1,000 ML IV SCH (16:16)
[2019-07-09 20:22] LABS: BUN/Creatinine Ratio 19; Blood Urea Nitrogen 25 mg/dL (9-20); Calcium 10.6 mg/dL (8.4-10.2); Hemolysis Index 13
[2019-07-10] MEDS: D5W/0.45% NACL 1,000 ML IV SCH (01:00)
[2019-07-10] MEDS: INSULIN REGULAR, HUMAN 100 UNITS in SODIUM CHLORIDE 0.9% 99 ML IV SCH (01:00)
[2019-07-10 05:29] LABS: BUN/Creatinine Ratio 19; Blood Urea Nitrogen 23 mg/dL (9-20); Calcium 10.4 mg/dL (8.4-10.2); Hemolysis Index 10
[2019-07-10] MEDS: POTASSIUM CHLORIDE 10 MEQ 10 MEQ/100 ML BAG IV SCH ×2 (08:18→09:27)
[2019-07-10] MEDS ORDERED: INSULIN NPH/REGULAR 70/30 INJ SUB-Q SCH (10:00)
--- NOTE | 2019-07-10 11:00 | Progress Note ---
Assessment and Plan 34 y/o with DKA, obesity. 1. Agree with stopping drip, will speak with pharmacy in regards to proper dosing of long acting insulin based on requirements for the last 24 hours 2. Feed the patient 3. Diabetic education 4. Weight loss CCT 31 minutes. Subjective Date of service: 07/10/19 Interval history: Anion Gap has no closed and sugars have improved. Objective - Constitutional Vitals: Vital Signs - 12hr 07/09/19 07/10/19 07/10/19 23:00 00:00 01:00 Temperature 98.8 F Pulse Rate 78 85 81 Pulse Rate [ 85 From Monitor] Respiratory 16 14 21 Rate Blood Pressure 125/80 125/80 147/96 O2 Sat by Pulse 100 98 99 Oximetry 07/10/19 07/10/19 07/10/19 02:00 03:00 04:00 Temperature 98.7 F Pulse Rate 87 82 85 Pulse Rate [ 85 From Monitor] Respiratory 15 13 12 Rate Blood Pressure 141/80 144/96 120/82 O2 Sat by Pulse 96 99 99 Oximetry 07/10/19 07/10/19 07/10/19 05:00 06:00 07:00 Temperature Pulse Rate 82 86 87 Pulse Rate [ From Monitor] Respiratory 12 14 15 Rate Blood Pressure 119/72 118/73 138/88 O2 Sat by Pulse 99 98 99 Oximetry 07/10/19 08:00 Temperature 98.4 F Pulse Rate 88 Pulse Rate [ From Monitor] Respiratory 10 L Rate Blood Pressure 123/84 O2 Sat by Pulse 100 Oximetry - Labs CBC & Chem 7: 07/07/19 16:30 07/10/19 04:35 Labs: Abnormal lab results 07/09/19 07/09/19 07/09/19 Range/Units 11:18 12:02 13:15 Sodium (137-145) mmol/L Potassium (3.6-5.0) mmol/L Chloride (98-107) mmol/L BUN (9-20) mg/dL Glucose (75-100) mg/dL POC Glucose 402 H 416 H 311 H (70-105) Calcium (8.4-10.2) mg/dL 07/09/19 07/09/19 07/09/19 Range/Units 14:16 15:25 16:25 Sodium (137-145) mmol/L Potassium (3.6-5.0) mmol/L Chloride (98-107) mmol/L BUN (9-20) mg/dL Glucose (75-100) mg/dL POC Glucose 292 H 242 H 214 H (70-105) Calcium (8.4-10.2) mg/dL 07/09/19 07/09/19 07/09/19 Range/Units 17:18 18:31 19:24 Sodium (137-145) mmol/L Potassium (3.6-5.0) mmol/L Chloride (98-107) mmol/L BUN (9-20) mg/dL Glucose (75-100) mg/dL POC Glucose 246 H 209 H 217 H (70-105) Calcium (8.4-10.2) mg/dL 07/09/19 07/09/19 07/09/19 Range/Units 19:42 20:15 21:20 Sodium 148 H (137-145) mmol/L Potassium (3.6-5.0) mmol/L Chloride 109.0 H (98-107) mmol/L BUN 25 H (9-20) mg/dL Glucose 210 H (75-100) mg/dL POC Glucose 182 H 181 H (70-105) Calcium 10.6 H (8.4-10.2) mg/dL 07/09/19 07/09/19 07/10/19 Range/Units 21:38 23:33 00:33 Sodium (137-145) mmol/L Potassium (3.6-5.0) mmol/L Chloride (98-107) mmol/L BUN (9-20) mg/dL Glucose (75-100) mg/dL POC Glucose 169 H 140 H 130 H (70-105) Calcium (8.4-10.2) mg/dL 07/10/19 07/10/19 07/10/19 Range/Units 01:14 02:32 03:15 Sodium (137-145) mmol/L Potassium (3.6-5.0) mmol/L Chloride (98-107) mmol/L BUN (9-20) mg/dL Glucose (75-100) mg/dL POC Glucose 143 H 172 H 166 H (70-105) Calcium (8.4-10.2) mg/dL 07/10/19 07/10/19 07/10/19 Range/Units 04:27 04:35 05:37 Sodium 151 H (137-145) mmol/L Potassium 3.3 L (3.6-5.0) mmol/L Chloride 112.6 H (98-107) mmol/L BUN 23 H (9-20) mg/dL Glucose 174 H (75-100) mg/dL POC Glucose 186 H 153 H (70-105) Calcium 10.4 H (8.4-10.2) mg/dL 07/10/19 07/10/19 07/10/19 Range/Units 07:19 08:12 09:32 Sodium (137-145) mmol/L Potassium (3.6-5.0) mmol/L Chloride (98-107) mmol/L BUN (9-20) mg/dL Glucose (75-100) mg/dL POC Glucose 123 H 129 H 146 H (70-105) Calcium (8.4-10.2) mg/dL Medications & Allergies - Medications Allergies/Adverse Reactions: Allergies Penicillins Allergy (Verified 07/07/19 16:06) Unknown Home Medications: Home Medications Medication Instructions Recorded Confirmed Last Taken Type No Known Home Medications [No 07/08/19 07/08/19 Unknown History Reported Home Medications] Active Medications: Generic Name Dose Route Start Last Admin Trade Name Freq PRN Reason Stop Dose Admin Dextrose 0 ml 07/07/19 17:09 D50w (25gm) Syringe IV Q30MIN PRN Hypoglycemia Protocol Dextrose/Sodium Chloride 1,000 mls @ 125 mls/hr 07/09/19 11:00 07/10/19 01:00 D5/0.45ns IV 125 mls/hr DIRECT JASS Administration Insulin Human Isoph/Insulin Regular 10 unit 07/10/19 10:00 Humulin 70/30 SUB-Q BIDDIAB JASS Sodium Chloride 10 ml 07/07/19 22:00 07/10/19 09:27 Sodium Chloride Flush Syringe 10 Ml IV 10 ml BID JASS Administration Sodium Chloride 10 ml 07/07/19 18:02 Sodium Chloride Flush Syringe 10 Ml IV PRN PRN LINE FLUSH
[2019-07-10] MEDS: INSULIN NPH/REGULAR 70/30 INJ SUB-Q SCH ×2 (11:43→17:10)
[2019-07-10] MEDS: INSULIN REGULAR, HUMAN 100 UNITS/1 ML SUB-Q SCH ×3 (11:45→21:11)
--- NOTE | 2019-07-10 14:08 | Progress Note ---
Assessment and Plan - Patient Problems (1) Acute kidney injury (SHAHNAZ) with acute tubular necrosis (ATN) Current Visit: Yes Status: Acute Plan to address problem: Acute kidney injury secondary to prerenal azotemia DKA resolving. (2) DVT prophylaxis Current Visit: Yes Status: Acute Plan to address problem: Heparin anticoagulation. (3) Diabetic ketoacidosis Current Visit: Yes Status: Acute Plan to address problem: Diabetic ketoacidosis present on admission gap has resolved. Patient new onset diabetes strong family history. Will place patient on 70/30 Humulin 10 units twice daily titrate accordingly. Patient most likely would be a great candidate for changing to p.o. antibiotics as outpatient basis. Transfer from ICU discharge in a.m. (4) Metabolic acidosis Current Visit: Yes Status: Resolved (5) Obesity Current Visit: Yes Status: Acute Qualifiers: Body mass index: BMI 40.0-44.9 Plan to address problem: Suggest increase physical activity and low carbohydrate diet. I did discuss future diet plans and meal changes with patient. (6) Systemic inflammatory response syndrome (SIRS) associated with organ dysfunction Current Visit: Yes Status: Acute Plan to address problem: Secondary to DKA resolving. Subjective Date of service: 07/10/19 Principal diagnosis: DKA Interval history: Patient presented in DKA with difficulty breathing fatigue polyuria polydipsia found to be in DKA. Patient is alert oriented. Has strong family history of diabetes. This is new onset diabetes for him. His gap is closed patient stable to transfer to the regular floor with more aggressive diabetic control. Objective - Constitutional Vitals: Vital Signs - 12hr 07/10/19 07/10/19 07/10/19 03:00 04:00 05:00 Temperature 98.7 F Pulse Rate 82 85 82 Pulse Rate [ 85 From Monitor] Respiratory 13 12 12 Rate Blood Pressure 144/96 120/82 119/72 O2 Sat by Pulse 99 99 99 Oximetry 07/10/19 07/10/19 07/10/19 06:00 07:00 08:00 Temperature 98.4 F Pulse Rate 86 87 88 Pulse Rate [ From Monitor] Respiratory 14 15 10 L Rate Blood Pressure 118/73 138/88 123/84 O2 Sat by Pulse 98 99 100 Oximetry General appearance: Present: no acute distress, well-nourished - EENT Eyes: PERRL, EOM intact ENT: hearing intact, clear oral mucosa Ears: bilateral: normal - Neck Neck: supple, normal ROM - Respiratory Respiratory effort: normal Respiratory: bilateral: CTA - Breasts Breasts: normal - Cardiovascular Rhythm: regular Heart Sounds: Present: S1 & S2. Absent: gallop, rub Extremities: pulses intact, No edema, normal color, Full ROM - Gastrointestinal General gastrointestinal: Present: soft, non-tender, non-distended, normal bowel sounds - Genitourinary Male genitourinary: normal - Integumentary Integumentary: clear, warm, dry - Musculoskeletal Musculoskeletal: 1, strength equal bilaterally - Neurologic Neurologic: moves all extremities - Psychiatric Psychiatric: memory intact, appropriate mood/affect, intact judgment & insight - Labs CBC & Chem 7: 07/07/19 16:30 07/10/19 04:35 Labs: Abnormal lab results 07/07/19 07/09/19 07/09/19 Range/Units 17:24 14:16 15:25 Sodium (137-145) mmol/L Potassium (3.6-5.0) mmol/L Chloride (98-107) mmol/L BUN (9-20) mg/dL Glucose (75-100) mg/dL POC Glucose 292 H 242 H (70-105) Calcium (8.4-10.2) mg/dL Phosphorus 9.70 H (2.5-4.5) mg/dL Magnesium 3.70 H (1.7-2.3) mg/dL 07/09/19 07/09/19 07/09/19 Range/Units 16:25 17:18 18:31 Sodium (137-145) mmol/L Potassium (3.6-5.0) mmol/L Chloride (98-107) mmol/L BUN (9-20) mg/dL Glucose (75-100) mg/dL POC Glucose 214 H 246 H 209 H (70-105) Calcium (8.4-10.2) mg/dL Phosphorus (2.5-4.5) mg/dL Magnesium (1.7-2.3) mg/dL 07/09/19 07/09/19 07/09/19 Range/Units 19:24 19:42 20:15 Sodium 148 H (137-145) mmol/L Potassium (3.6-5.0) mmol/L Chloride 109.0 H (98-107) mmol/L BUN 25 H (9-20) mg/dL Glucose 210 H (75-100) mg/dL POC Glucose 217 H 182 H (70-105) Calcium 10.6 H (8.4-10.2) mg/dL Phosphorus (2.5-4.5) mg/dL Magnesium (1.7-2.3) mg/dL 07/09/19 07/09/19 07/09/19 Range/Units 21:20 21:38 23:33 Sodium (137-145) mmol/L Potassium (3.6-5.0) mmol/L Chloride (98-107) mmol/L BUN (9-20) mg/dL Glucose (75-100) mg/dL POC Glucose 181 H 169 H 140 H (70-105) Calcium (8.4-10.2) mg/dL Phosphorus (2.5-4.5) mg/dL Magnesium (1.7-2.3) mg/dL 07/10/19 07/10/19 07/10/19 Range/Units 00:33 01:14 02:32 Sodium (137-145) mmol/L Potassium (3.6-5.0) mmol/L Chloride (98-107) mmol/L BUN (9-20) mg/dL Glucose (75-100) mg/dL POC Glucose 130 H 143 H 172 H (70-105) Calcium (8.4-10.2) mg/dL Phosphorus (2.5-4.5) mg/dL Magnesium (1.7-2.3) mg/dL 07/10/19 07/10/19 07/10/19 Range/Units 03:15 04:27 04:35 Sodium 151 H (137-145) mmol/L Potassium 3.3 L (3.6-5.0) mmol/L Chloride 112.6 H (98-107) mmol/L BUN 23 H (9-20) mg/dL Glucose 174 H (75-100) mg/dL POC Glucose 166 H 186 H (70-105) Calcium 10.4 H (8.4-10.2) mg/dL Phosphorus (2.5-4.5) mg/dL Magnesium (1.7-2.3) mg/dL 07/10/19 07/10/19 07/10/19 Range/Units 05:37 07:19 08:12 Sodium (137-145) mmol/L Potassium (3.6-5.0) mmol/L Chloride (98-107) mmol/L BUN (9-20) mg/dL Glucose (75-100) mg/dL POC Glucose 153 H 123 H 129 H (70-105) Calcium (8.4-10.2) mg/dL Phosphorus (2.5-4.5) mg/dL Magnesium (1.7-2.3) mg/dL 07/10/19 07/10/19 Range/Units 09:32 11:42 Sodium (137-145) mmol/L Potassium (3.6-5.0) mmol/L Chloride (98-107) mmol/L BUN (9-20) mg/dL Glucose (75-100) mg/dL POC Glucose 146 H 176 H (70-105) Calcium (8.4-10.2) mg/dL Phosphorus (2.5-4.5) mg/dL Magnesium (1.7-2.3) mg/dL
[2019-07-10] MEDS ORDERED: DEXTROSE 50% IN WATER (25GM) 50 ML SYRINGE IV PRN (19:10)
[2019-07-10] MEDS: INSULIN LISPRO 100 UNIT/ML SUB-Q SCH ×2 (22:50)
[2019-07-11] MEDS: INSULIN NPH/REGULAR 70/30 INJ SUB-Q SCH ×2 (09:00→17:00)
[2019-07-11] MEDS: INSULIN LISPRO 100 UNIT/ML SUB-Q SCH ×3 (09:52→16:30)
[2019-07-11] MEDS: INSULIN REGULAR, HUMAN 100 UNITS/1 ML SUB-Q SCH ×3 (09:53→18:41)
--- NOTE | 2019-07-11 10:27 | Discharge Summary ---
Providers - Providers Date of Admission: 07/07/19 18:02 Date of discharge: 07/11/19 Attending physician: DORY ELIAS 07/11/19 10:21 Consult to Dietitian/Nutrition [CONS] Stat Physician Instructions: Reason For Exam: Reason for Consult: Diet education Primary care physician: [employer] Hospitalization Condition: Good Hospital course: Patient presented polyuria polydipsia found to be in DKA with blood glucose in the 600s. Patient admitted to ICU placed on insulin drip protocol DKA protocol insulin drip. Electrolytes corrected magnesium phosphorus. Patient was placed on 70/30 insulin to be discharge with fair but suboptimally controlled blood glucose. Patient to follow-up with primary care provider 3 to 7 days for furt her dose titration. Disposition: DC-30 STILL A PATIENT - Discharge Diagnoses (1) Acute kidney injury (SHAHNAZ) with acute tubular necrosis (ATN) Status: Acute Comment: Resolved. Prerenal azotemia. (2) DVT prophylaxis Status: Acute (3) Diabetic ketoacidosis Status: Acute Comment: Resolved. Continue 70/30 insulin 30 units twice daily. (4) Metabolic acidosis Status: Resolved (5) Obesity Status: Acute Qualifiers: Body mass index: BMI 40.0-44.9 Comment: Increase physical activity decrease carbohydrate intake. Patient had diabetic teaching prior to discharge. (6) Systemic inflammatory response syndrome (SIRS) associated with organ dysfunction Status: Acute Core Measure Documentation - Palliative Care Palliative Care/ Comfort Measures: Not Applicable - Core Measures Any of the following diagnoses?: none Exam - Constitutional Vitals: Temp Pulse Resp BP Pulse Ox 99 F 85 20 148/87 98 07/11/19 04:00 07/11/19 04:00 07/11/19 04:00 07/11/19 04:00 07/11/19 04:00 General appearance: Present: no acute distress, well-nourished - EENT Eyes: Present: PERRL ENT: hearing intact, clear oral mucosa - Neck Neck: Present: supple, normal ROM - Respiratory Respiratory effort: normal Respiratory: bilateral: CTA - Cardiovascular Heart Sounds: Present: S1 & S2. Absent: rub, click - Extremities Extremities: pulses symmetrical, No edema Peripheral Pulses: within normal limits - Abdominal General gastrointestinal: Present: soft, non-tender, non-distended, normal bowel sounds Male genitourinary: Present: normal - Integumentary Integumentary: Present: clear, warm, dry - Musculoskeletal Musculoskeletal: gait normal, strength equal bilaterally - Psychiatric Psychiatric: appropriate mood/affect, intact judgment & insight - Neurologic Neurologic: CNII-XII intact, moves all extremities Plan Activity: no restrictions Diet: diabetic Follow up with: PRIMARY CARE,MD [Primary Care Provider] - 7 Days Prescriptions: Insulin NPH/Regular [NovoLIN 70/30] 35 unit SUB-Q BIDDIAB #1 units
[2019-07-11 17:06] VITALS: BP 123/75
== END 2019-07-11 18:42 | disposition home or self-care (01) | DRG 637 ==
LOC: ED 15:53 → CC1 18:02 → 4A 07-10 15:26
PROVIDERS: ADMIT Internal Medicine; ATTEND Internal Medicine
DX: E11.10 Type 2 diabetes mellitus with ketoacidosis without coma (principal); N17.0 Acute kidney failure with tubular necrosis; R65.11 Systemic inflammatory response syndrome (SIRS) of non-infectious origin with acute organ dysfunction; Z68.41 Body mass index [BMI] 40.0-44.9, adult; E87.1 Hypo-osmolality and hyponatremia; E66.9 Obesity, unspecified; E66.01 Morbid (severe) obesity due to excess calories; Z88.0 Allergy status to penicillin; Z71.3 Dietary counseling and surveillance; Z83.3 Family history of diabetes mellitus; Z82.49 Family history of ischemic heart disease and other diseases of the circulatory system; Z79.4 Long term (current) use of insulin
CPT/HCPCS: 36415; 71045; 80048; 80053; 80307; 80320; 81001; 82140; 82805; 82962; 83735; 84100; 84484; 85027; 93005; G0378; G0480; J1815; J3480; J7030; J7070